=== PATIENT | male | born 1990 | race Asian ===

== ENCOUNTER 2017-02-08 16:05 | Outpatient (CLI) | payer OTHER ==
--- NOTE | 2017-02-09 09:48 | Diagnostic Imaging Report ---
Cervical spine 5 views Indication: pain Comparison: Thoracic spine x-ray the same day Findings: There is straightening of the cervical lordosis. Minimal degenerative changes are noted. No evidence of an acute compression fracture or subluxation. Evaluation of the cervicothoracic junction is limited as swimmer's views were not obtained. No prevertebral soft tissue swelling. The atlantodental articulation is preserved. Impression: Straightening of the cervical lordosis which may be due to positioning versus muscle spasm. No evidence of an acute compression fracture or subluxation. Minimal degenerative changes. In the setting of trauma, if clinical symptoms persist and there is continued concern for an occult fracture, follow up exams in 5-7 days is suggested.
--- NOTE | 2017-02-09 09:50 | Diagnostic Imaging Report ---
Thoracic spine 3 views Indication: pain Comparison: Cervical spine x-rays the same day Findings: Mild generalized degenerative changes are noted. No evidence of an acute compression fracture or subluxation. There is minimal rightward convexity of the thoracic spine which may be due to positioning versus less likely minimal scoliosis. Impression: No evidence of an acute compression fracture or subluxation Mild degenerative changes. In the setting of trauma, if clinical symptoms persist and there is continued concern for an occult fracture, follow up exams in 5-7 days is suggested.
== END 2017-02-08 16:35 | disposition home or self-care (01) ==
LOC: RAD 16:05
PROVIDERS: ATTEND Emergency Medicine
DX: M54.2 Cervicalgia (principal); M54.6 Pain in thoracic spine
CPT/HCPCS: 72050-TC; 72072-TC

== ENCOUNTER 2017-12-17 10:08 | Outpatient (CLI) | payer OTHER ==
--- NOTE | 2017-12-18 09:52 | Diagnostic Imaging Report ---
Right ankle 3 views Indication: Trauma Comparison: none Findings: Soft tissue swelling is seen surrounding the ankle greatest laterally. No evidence of an acute fracture or dislocation. Impression: No evidence of an acute fracture. Soft tissue swelling greatest laterally. Underlying ligamentous injury cannot be excluded. In the setting of trauma, if clinical symptoms persist and there is continued concern for an occult fracture, follow up exams in 5-7 days is suggested.
== END 2017-12-17 10:35 | disposition home or self-care (01) ==
LOC: RAD 10:08 → EEVIPCON 10:08 → RAD 10:35
PROVIDERS: ATTEND General Practice
DX: M25.471 Effusion, right ankle (principal)
CPT/HCPCS: 73610-RT-TC

== ENCOUNTER 2018-05-10 11:37 | Emergency (ER) | payer OTHER ==
--- NOTE | 2018-05-10 11:54 | ED Physician Chart ---
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 Pain, A/N/V/D/C, fever, chills, or urinary s/s; pt's last tetanus shot: > 5 years Allergies:: Allergies Allergy/AdvReac Type Severity Reaction Status Date / Time No Known Allergies Allergy Verified 04/27/16 09:09 Historian:: Patient Review:: Nurse's Note Reviewed ED Review of Systems - Review of Systems General/Constitutional: No fever, No chills, No weight loss, No weakness, No diaphoresis, No edema, No loss of appetite Skin: No skin lesions, No rash, No bruising Head: No headache, No light-headedness Eyes: No loss of vision, No pain, No diplopia ENT: No earache, No nasal drainage, No sore throat, No tinnitus Neck: No neck pain, No swelling, No thyromegaly, No stiffness, No mass noted Cardio Vascular: No chest pain, No palpitations, No PND, No orthopnea, No edema Pulmonary: No SOB, No cough, No sputum, No wheezing GI: No nausea, No vomiting, No diarrhea, No pain, No melena, No hematochezia, No constipation, No hematemesis G/U: No dysuria, No frequency, No hematuria, No nacturia Musculoskeletal: No bone or joint pain, No back pain, No muscle pain Endocrine: No polyuria, No polydipsia Psychiatric: No prior psych history, No depression, No anxiety, No suicidal ideation, No homicidal ideation, No auditory hallucination, No visual hallucination Hematopoietic: No bruising, No lymphadenopathy Allergic/Immuno: No urticaria, No angioedema Neurological: No syncope, No focal symptoms, No weakness, No paresthesia, No headache, No seizure, No dizziness, No confusion, No vertigo ED Past Medical History - Past Medical History Obtainable: Yes Past Medical History: No significant medical hx Family History: None Social History: Non Smoker, No Alcohol, No Drug Use, Single Surgical History: None Psychiatricy History: None Medication: Reviewed Family Medical History - Family Member Mother Ethnicity: Non- Living Status: Still Living Hx Family Cancer: Yes Hx Family Coronary Artery Disease: Yes Hx Family Congestive Heart Failure: No Hx Family Hypertension: Yes Hx Family Stroke: Yes Hx Family Diabetes: Yes Hx Family Seizures: No Hx Family Dementia: No Hx Family AIDS: No Hx Family HIV: No Hx Family COPD: No Hx Family Hepatitis: No Hx Family Psychiatric Problems: No Hx Family Tuberculosis: No ED Physical Exam - Physical Examination General/Constitutional: Awake, Well-developed, well-nourished, Alert, No distress, GCS 15, Non-toxic appearing, Ambulatory Head: Atraumatic Eyes: Lids, conjuctiva normal, PERRL, EOMI Skin: Nl inspection, No rash, No skin lesions, No ecchymosis, Well hydrated, No lymphadenopathy Other Skin comments:: Left Thumb Punctiure Wound at volar DP region; no FBs; no cellulitis; no s/s of infection; no ligament instability; no septic joints; full active ROMs of all joints; no ligament laxity; good motor, tendon, and sensory functions; good NV functions ENMT: External ears, nose nl, Nasal exam nl, Lips, teeth, gums nl, Oropharynx nl , Tonsils nl Neck: Nontender, Full ROM w/o pain, No JVD, No nuchal rigidity, No bruit, No mass, No stridor Respiratory: Nl effort/Exclusion, Clear to Auscultation, No Wheeze/Rhonchi/Rales Cardio Vascular: RRR, No murmur, gallop, rubs, NL S1 S2, Carotid/Femoral/Distal pulses equal bilaterally GI: No tenderness/rebounding/guarding, No organomegaly, No hernia, Normal BS's, Nondistended, No mass/bruits, No McBurney tenderness : No CVA tenderness Extremities: No tenderness or effusion, Full ROM, normal strength in all extremities, No edema, Normal digits & nails Neuro/Psych: Alert/oriented, DTR's symmetric, Normal sensory exam, Normal motor strength, Judgement/insight normal, Mood normal, Normal gait, No focal deficits Misc: Normal back, No paraspinal tenderness ED Labs/Radiology/EKG Results - Lab Results Comments:: pending ED Assessment Prep/Irrigation:: Thorough Cleansing and Irrigation with Betadine and Saline; Neosporin Ointment and dressing applied ED Septic Shock - . Is Septic Shock (SBP<90, OR Lactate>4 mmol\L) present?: No ED Reassessment (Disposition) - Reassessment Reassessment:: pt is asymptomatic upon discharge Reassessment Condition:: Improved - Diagnosis Diagnosis:: Left Thumb Puncture Wound; Accidental Contamminated Needle Stick; Puncture Wound - Aftercare/Follow up Instructions Aftercare/Follow-Up Instructions:: Counseled pt regarding lab results/diagnosis & need follow up, Refer to Discharge Instructions, Counseled pt & family regarding lab results/diagnosis & need follow up - Patient Disposition Discharge/Transfer:: Home Condition at Disposition:: Stable, Improved (RTER prn if existing s/s reoccur and/or get worse and/or any other new s/s occur; ACIs given for all above Dx; Refer to ID Specialist/Operating Room Surgical Technologist SAVANAH; F/U with PMD in one day or prn; RTER prn if concerned)
== END 2018-05-10 12:11 | disposition home or self-care (01) ==
LOC: ER 11:37
DX: S61.032A Puncture wound without foreign body of left thumb without damage to nail, initial encounter (principal); W46.1XXA Contact with contaminated hypodermic needle, initial encounter; Y93.89 Activity, other specified; Y92.89 Other specified places as the place of occurrence of the external cause; Y99.8 Other external cause status
CPT/HCPCS: 36415-UA; 86703-TC; 86704-90; 86803-90; Z7502

== ENCOUNTER 2019-02-24 09:28 | Outpatient (CLI) | payer OTHER ==
--- NOTE | 2019-02-24 10:21 | Diagnostic Imaging Report ---
CHEST X-RAY: AP view INDICATION: Congestion COMPARISON: Chest x-ray 04/11/2018 FINDINGS: Slight increase in interstitial lung markings are noted. There is no focal consolidation or pleural effusions The heart is normal in size. The osseous structures demonstrate no acute abnormalities. IMPRESSION: Slight increased interstitial lung markings. No focal consolidation or evidence of ezny CHF.
== END 2019-02-24 10:08 | disposition home or self-care (01) ==
LOC: RAD 09:28
PROVIDERS: ATTEND General Practice
DX: R09.89 Other specified symptoms and signs involving the circulatory and respiratory systems (principal)
CPT/HCPCS: 71045-TC